=== PATIENT | male | born 1970 ===

== ENCOUNTER 2019-09-22 09:30 | Emergency (ER) | payer BC, OTHER ==
[2019-09-22] MEDS ORDERED: MORPHINE SULFATE 10 MG/ML INJ IV ONE ×2 (10:28→12:27)
[2019-09-22] MEDS ORDERED: KETOROLAC TROMETHAMINE INJ/PF 30 MG/1 ML SDV IV ONE (10:28)
[2019-09-22] MEDS ORDERED: ONDANSETRON HCL INJ/PF 4 MG/2 ML SDV IV ONE (10:28)
[2019-09-22] MEDS ORDERED: NORMAL SALINE 1000 ML 1,000 ML IV ONE ×2 (10:28→12:59)
--- NOTE | 2019-09-22 10:32 | ER Document Report ---
ED Medical Screen (RME) - General Chief Complaint: Flank Pain Stated Complaint: FLANK PAIN Time Seen by Provider: 09/22/19 10:26 Primary Care Provider: NOHEMY HEARN [Primary Care Provider] - Follow up as needed Notes: Patient is a 49-year-old male who presents to emergency department with a chief complaint of flank pain. Patient reports around 8 AM he had an acute onset of right flank pain that radiates into the right lower abdomen. Patient reports he is able trouble urinating and only able to get a few dribbles out at a time. Patient denies fever. Patient denies history of kidney stones. TRAVEL OUTSIDE OF THE [place] IN LAST 30 DAYS: No - Related Data Allergies/Adverse Reactions: No Known Allergies Allergy (Verified 09/22/19 10:23) Course - Re-evaluation Re-evalutation: 09/22/19 10:31 Patient actively distress in triage with acute pain. Patient guarding his abdomen. I have ordered IV fluids, pain medication and antinausea medication. I have greeted and performed a rapid initial assessment of this patient. A comprehensive ED assessment and evaluation of the patient, analysis of test results and completion of the medical decision making process will be conducted by additional ED providers. Doctor's Discharge - Discharge Referrals: NOHEMY HEARN [Primary Care Provider] - Follow up as needed
[2019-09-22 11:22] LABS: ABSOLUTE MONOCYTES (AUTO) 0.5 10^3/uL (0.1-1.4); ABSOLUTE NEUT (AUTO) 10.4 10^3/uL (1.7-8.2); BASOPHILS % (AUTO) 0.3 % (0-2); EOSINOPHILS % (AUTO) 0.2 % (0-6); HEMATOCRIT 49.8 % (37.9-51.0); HEMOGLOBIN 16.2 g/dL (13.5-17.0); LYMPHOCYTES % (AUTO) 8.2 % (13-45); MEAN CORPUSCULAR HEMOGLOBIN 26.4 pg (27.0-33.4); MEAN CORPUSCULAR HGB CONC 32.6 g/dL (32.0-36.0); MEAN CORPUSCULAR VOLUME 81 fl (80-97); MONOCYTES % (AUTO) 4.3 % (3-13); PLATELET COUNT 306 10^3/uL (150-450); RED BLOOD COUNT 6.15 10^6/uL (4.35-5.55); RED CELL DISTRIBUTION WIDTH 14.8 % (11.5-14.0); TOTAL CELLS COUNTED % (AUTO) 100 %; WHITE BLOOD COUNT 11.9 10^3/uL (4.0-10.5)
--- NOTE | 2019-09-22 11:29 | RADIOLOGY REPORT (SQ) ---
EXAM DESCRIPTION: U/S RETROPERITON (RENAL/AORTA) COMPLETED DATE/TIME: 09/22/2019 11:05 am REASON FOR STUDY: right flank pain, radiates into RLQ COMPARISON: None. TECHNIQUE: Dynamic and static grayscale images acquired of the kidneys and bladder and recorded on P ACS. Additional selected color Doppler and spectral images recorded. LIMITATIONS: None. FINDINGS: RIGHT KIDNEY: The right kidney measures 12.3 cm in length. The echotexture of the renal p arenchyma is normal. The corticomedullary differentiation is preserved. There is no calcification, mass or hydronephrosis. LEFT KIDNEY: The left kidney measures 10.7 cm in length. The echotexture of the renal parenchyma is normal. The corticomedullary differentiation is preserved. There is no calcification, mass or hydr onephrosis. BLADDER: Unable to visualize the urinary bladder. OTHER FINDINGS: No other finding. IMPRESSION: No renal abnormality. Unable to visualize the nondistended urinary bladder. TECHNICAL DOCUMENTATION: JOB ID: [id number] [employer]- All Rights Reserved Reading location - IP/workstation name: [email or web address]
[2019-09-22 11:47] LABS: ALBUMIN 4.5 g/dL (3.5-5.0); ALKALINE PHOSPHATASE 85 U/L (38-126); ANION GAP 12 (5-19); ASPARTATE AMINO TRANSFERASE 27 U/L (17-59); BILIRUBIN,DIRECT 0.2 mg/dL (0.0-0.4); BILIRUBIN,TOTAL 0.9 mg/dL (0.2-1.3); BLOOD UREA NITROGEN 13 mg/dL (7-20); CARBON DIOXIDE 23 mmol/L (22-30); CHLORIDE 107 mmol/L (98-107); GLUCOSE 130 mg/dL (75-110); POTASSIUM 4.6 mmol/L (3.6-5.0); TOTAL PROTEIN 7.4 g/dL (6.3-8.2)
[2019-09-22] MEDS ORDERED: HYDROMORPHONE HCL INJ/PF 2 MG/ML AMPULE IV ONE (12:58)
[2019-09-22] MEDS ORDERED: METOCLOPRAMIDE HCL INJ/PF 10 MG/2 ML SDV IV ONE (12:58)
--- NOTE | 2019-09-22 13:01 | ER Document Report ---
ED General - General Chief Complaint: Possible Kidney Stone Stated Complaint: FLANK PAIN Time Seen by Provider: 09/22/19 10:26 Primary Care Provider: NOHEMY HEARN [NO LOCAL MD] - Follow up as needed TRAVEL OUTSIDE OF THE [place] IN LAST 30 DAYS: No - HPI Notes: Patient is a 49-year-old male with no significant past medical history who presents complaining of sudden onset right flank pain that radiates around into his groin that began at 8 AM today. Patient states he does have some associated nausea and vomiting. Patient states he has had urinary frequency with voiding small amounts. Patient states that the pain comes and goes. Denies drug allergies. He is otherwise having normal bowel movements. No recent illness. No surgical history to his abdomen or back. No history of spinal abscess or diabetes. Denies any headache, fever, URI, sore throat, chest pain, palpita tions, syncope, cough, shortness of breath, wheeze, dyspnea, diarrhea, loss of control of bowel or bladder, numbness/tingling, saddle anesthesia, muscle paralysis/weakness, or rash. - Related Data Allergies/Adverse Reactions: No Known Allergies Allergy (Verified 09/22/19 10:23) Past Medical History - Social History Smoking Status: Former Smoker Family History: Reviewed & Not Pertinent Patient has suicidal ideation: No Patient has homicidal ideation: No Review of Systems - Review of Systems -: Yes All other systems reviewed and negative Physical Exam - Notes Notes: PHYSICAL EXAMINATION: GENERAL: Well-appearing, well-nourished and in no acute resp distress. Pt cannot find comfortable position and holding rt flank currently. HEAD: Atraumatic, normocephalic. EYES: Pupils equal round and reactive to light, extraocular movements intact, sclera anicteric, conjunctiva are normal. ENT: Nares patent and without discharge. oropharynx clear without exudates. No tonsilar hypertrophy or erythema. Moist mucous membranes. NECK: Normal range of motion, supple without lymphadenopathy LUNGS: Breath sounds clear to auscultation bilaterally and equal. No wheezes rales or rhonchi. HEART: Regular rate and rhythm without murmurs, rubs, gallops. ABDOMEN: Soft, nontender, nondistended abdomen. No guarding, no rebound. Normal bowel sounds present. + Rt CVA tenderness. Palomino neg. No tenderness at McBurney. Musculoskeletal: FROM to passive/active. Strength 5+/5. Extremities: No cyanosis, clubbing, or edema b/l. Peripheral pulses 2+. Capillary refill less than 3 seconds. NEUROLOGICAL: Cranial nerves grossly intact. Normal speech, normal gait. PSYCH: Normal mood, normal affect. SKIN: Warm, Dry, normal turgor, no rashes or lesions noted. Course - Re-evaluation Re-evalutation: 09/22/19 14:48 Patient is an afebrile, well-hydrated, 49-year-old male who presents to the ED with a 3mm stone now in the bladder but rt sided pain with mild hydroureter/nephrosis. Vitals are acceptable without any significant tachycardia, tachypnea, or hypoxia. PE is otherwise unremarkable. CBC, CMP unremarkable for acute pathology. See UA results, no signs of infection. UC pending. Patient was given Zofran, morphine, and toradol which significantly helped with his pain. No other labs or imaging warranted at this time based on H&P. Patient is tolerating p.o. without difficulties and is nontoxic-appearing. Low suspicion/risk for urosepsis, acute appendicitis, bowel obstruction, acute cholecystitis, perforated diverticulitis, incarcerated hernia, pancreatitis, perforated ulcer, peritonitis, sepsis, testicular torsion, or other systemic emergent condition at this time. Patient is aware that his condition can change from initial presentation and he needs to monitor symptoms closely and seek medical attention if any acute changes. I will send him home with a prescription for zofran, flomax, and morphine IR. Conservative measures otherwise for symptoms. Recheck with PCM in 2-3 days. Consider consult with a urologist. Return to the ED with any worsening/concerning symptoms otherwise as reviewed in discharge. Patient is in agreement. - Laboratory Result Diagrams: 09/22/19 11:00 09/22/19 11:00 Laboratory results interpreted by me: 09/22/19 09/22/19 09/22/19 11:00 11:00 12:25 WBC 11.9 H RBC 6.15 H MCH 26.4 L RDW 14.8 H Lymph % (Auto) 8.2 L Absolute Neuts (auto) 10.4 H Seg Neutrophils % 87.0 H Glucose 130 H Urine Protein 30 H Urine Ketones TRACE H Urine Blood MODERATE H Urine Ascorbic Acid 20 H Discharge - Discharge Clinical Impression: Kidney stone on right side Condition: Stable Disposition: HOME, SELF-CARE Instructions: Kidney Stone ([facility]) Additional Instructions: Push fluids (i.e. water, cranberry juice) Proper hygenic technique Keep the skin clean Tylenol/ibuprofen as needed Take medications as directed F/u with your PCM in 3-5 days for a recheck Consider consult with a Urologist for ongoing/worsening symptoms. Return to the ED with any worsening symptoms and/or development of fever, headache, chest pain, palpitations, syncope, shortness of breath, trouble breathing, abdominal pain, n/v/d, blood in stool/urine, loss of control of bowel/bladder, urinary retention, or other worsening symptoms that are concerning to you. Prescriptions: Tamsulosin HCl [Flomax] 0.4 mg PO DAILY #10 cap.er.24h Morphine Sulfate [Morphine Ir 15 Mg Tablet] 15 mg PO QID PRN #10 tablet PRN Reason: Ondansetron [Zofran Odt 4 mg Tablet] 1 - 2 tab PO Q4H PRN #15 tab.rapdis PRN Reason: For Nausea/Vomiting Forms: Elevated Blood Pressure Referrals: [facility] [Provider Group] - Follow up as needed
--- NOTE | 2019-09-22 13:55 | RADIOLOGY REPORT (SQ) ---
EXAM DESCRIPTION: CT ABD/PELVIS NO ORAL OR IV COMPLETED DATE/TIME: 09/22/2019 1:34 pm REASON FOR STUDY: Rt flank pain, dysuria COMPARISON: Renal ultrasound from 09/22/2019. TECHNIQUE: CT scan of the abdomen and pelvis performed without intravenous or oral contrast. Images reviewed with lung, soft tissue, and bone windows. Reconstructed coronal and sagittal MPR images revi ewed. All images stored on PACS. All CT scanners at this facility use dose modulation, iterative reconstruction, and/or weight based d osing when appropriate to reduce radiation dose to as low as reasonably achievable (ALARA). [facility]: Dose Right [facility]: CareDose [facility]: Dose Right [facility]: Teradose 4D [facility]: Smart Veenome RADIATION DOSE: CT Rad equipment meets quality standard of care and radiation dose reduction techniq ues were employed. CTDIvol: 9.4 mGy. DLP: 552 mGy-cm.mGy. LIMITATIONS: None. FINDINGS: LOWER CHEST: No acute findings. NON-CONTRASTED LIVER, SPLEEN, ADRENALS: Evaluation is limited due to the absence of intravenous contr ast. The liver morphology is non cirrhotic. The punctate hyperdensities in the hepatic dome (image 1 0 of series 3), segment 3 (image 13 of series 3), and segment 4B (image 22 of series 3) are too small to characterize. The spleen is normal in size. There is no abnormality of the adrenal glands. PANCREAS: No acute gross abnormality of the pancreas. GALLBLADDER: Cholelithiasis without gallbladder wall thickening or pericholecystic fluid. RIGHT KIDNEY AND URETER: There is mild right-sided hydronephrosis and hydroureter; these findings are secondary to recent passage of a 3 mm calculus that at the moment is located within the urinary blad liam lumen. There is no other renal or ureteral calculus. LEFT KIDNEY AND URETER: Evaluation is limited due to the absence of intravenous contrast. There is n o hydronephrosis, nephrolithiasis, hydroureter or ureterolithiasis. AORTA AND RETROPERITONEUM: No aneurysm of the abdominal aorta. No retroperitoneal adenopathy, hemorr kevin or mass BOWEL AND PERITONEAL CAVITY: Colonic diverticulosis without diverticulitis. APPENDIX: Normal. PELVIS, BLADDER, AND ABDOMINAL WALL:The prostate gland is normal in size. The urinary bladder is non distended. BONES: No acute findings. OTHER: No other finding. IMPRESSION: 1. 3 mm calculus within the urinary bladder that projects distal to the right ureteroves icular junction with associated mild right-sided hydronephrosis and hydroureter. 2. Colonic diverticulosis without diverticulitis. COMMENT: Quality ID # [id number]: Final reports with documentation of one or more dose reduction techniques (e.g., Automated exposure control, adjustment of the mA and/or kV according to patient size, use of iterative reconstruction technique) TECHNICAL DOCUMENTATION: JOB ID: [id number] [employer]- All Rights Reserved Reading location - IP/workstation name: [email or web address]-
[2019-09-22 14:38] LABS: AMORPHOUS SEDIMENT,URINE 2+ /HPF; APPEARANCE,URINE TURBID; BILIRUBIN,URINE NEGATIVE (NEGATIVE); COLOR,URINE YELLOW; GLUCOSE, URINE NEGATIVE (NEGATIVE); KETONES,URINE TRACE mg/dL (NEGATIVE); PROTEIN,URINE 30 mg/dL (NEGATIVE); URINE SPECIFIC GRAVITY 1.031; UROBILINOGEN,URINE NEGATIVE mg/dL (<2.0)
[2019-09-22 15:57] VITALS: BP 173/97
== END 2019-09-22 15:14 | disposition home or self-care (01) ==
LOC: ER 09:30
DX: N21.0 Calculus in bladder (principal); N13.30 Unspecified hydronephrosis; R10.9 Unspecified abdominal pain; R11.2 Nausea with vomiting, unspecified; R35.0 Frequency of micturition; Z87.891 Personal history of nicotine dependence
CPT/HCPCS: 96376; 99284; 96361; 96374; 96375; 36415; 85025; 80053; 81001; 76770; 74176; J1885; J2765; J2270; J1170; J2405; J7030